=== PATIENT | female | born 1935 | race Two or more races ===

== ENCOUNTER 2018-05-22 04:06 | Emergency (ER) | payer MEDICARE ==
[~2018-05-22] VITALS: Ht 162.6 cm; Wt 68.0 kg
--- NOTE | 2018-05-22 04:20 | NUR ---
PT BIBRA FROM HOME COMPLAINING OF PAIN NEAR COCCYX. PT FELL 2 WEEKS AGO AND STATES PAIN GOT WORSE EALIER TODAY. PER DAUGHTER, PT IS NORMALLY ABOUT TO AMBULATE WITH WALKER. PT APPEARS UNCOMFORTABLY, UNABLE TO SIT ON BEAR WEIGHT ON LEFT SIDE OF BUTTOCKS. PT IS AAOX4. RESPIRATIONS EVEN AND UNLABORED. SKIN WARM AND INTACT. NO ACUTE DISTRESS NOTED. WILL CONTINUE TO MONITOR
--- NOTE | 2018-05-22 04:40 | NUR ---
PT BROUGT BY RADIOLOGY FOR CT
[2018-05-22] MEDS ORDERED: HYDROCODONE/APAP 5/325MG 1 EACH TABLET ONE (04:53)
[2018-05-22] MEDS ORDERED: HYDROCODONE/APAP 5/325MG 1 EACH TABLET PO ONE (05:00)
--- NOTE | 2018-05-22 05:50 | NUR ---
CALLED [facility] FOR TRANSPORTATION ETA [phone]. TRIP #[id number]
[2018-05-22 07:14] VITALS: BP 128/65
--- NOTE | 2018-05-22 07:14 | NUR ---
Patient discharged to home in stable condition. Written and verbal after care instructions given. Patient verbalizes understanding of instruction. Gave report to [facility] for transportation [place].
== END 2018-05-22 07:19 | disposition home or self-care (01) ==
LOC: ER 04:07
DX: M54.5 Low back pain (principal); W18.39XA Other fall on same level, initial encounter; Y93.89 Activity, other specified; Y92.89 Other specified places as the place of occurrence of the external cause; Y99.8 Other external cause status
CPT/HCPCS: 72131; 99284; A4606